=== PATIENT | male | born 1970 | race Caucasian/White ===

== ENCOUNTER 2020-10-18 15:49 | Inpatient (IN) ==
[2020-10-18] MEDS ORDERED: ONDANSETRON 4 MG/2 ML VIAL IV PRN (15:54)
[2020-10-18] MEDS ORDERED: ACETAMINOPHEN 325 MG TABLET PO PRN (15:54)
[2020-10-18] MEDS ORDERED: DIAZEPAM 5 MG TABLET PO ONE (16:46)
[2020-10-18] MEDS ORDERED: diphenhydrAMINE CAP 25 MG CAPSULE PO ONE (16:46)
[2020-10-18] MEDS ORDERED: MIDAZOLAM 2 MG/2 ML VIAL ONE ×2 (18:02→18:11)
[2020-10-18] MEDS ORDERED: fentaNYL 100 MCG/2 ML VIAL ONE (18:03)
[2020-10-18] MEDS ORDERED: NITROGLYCERIN DRIP 50 MG/250 ML BOTTLE IV ONE (18:05)
[2020-10-18] MEDS ORDERED: VERAPAMIL 5 MG/2 ML VIAL ONE (18:05)
[2020-10-18 18:07] LABS: Basophils % 0.1 % (0.0-0.8); Eosinophils % 0.1 % (0.00-10.9); Hematocrit 44.9 VOL% (42.0-52.0); Immature Granulocytes % 0.6 %; Immature Granulocytes Absolute 0.04 #; Lymphocytes # 1.2 10*3/uL (1.4-4.0); Lymphocytes % 15.9 % (21.2-54.2); Mean Corpuscular HGB Conc 33.4 GM/DL (32-36); Mean Corpuscular Volume 86.2 FL (87-102); Mean Platelet Volume 9.6 FL (9.6-12.0); Monocytes % 2.1 % (1.7-12.7); Neutrophils % 81.2 % (38.7-73.9); Platelet Count 236 T/CUMM (130-400); Red Blood Count 5.21 MC/CUMM (3.8-5.5); Red Cell Distribution Width 11.9 % (9.3-17.3); White Blood Count 7.2 T/CUMM (4-12)
[2020-10-18] MEDS ORDERED: HYDROmorphone 2 MG/1 ML VIAL ONE (18:11)
[2020-10-18] MEDS ORDERED: ENOXAPARIN 60 MG/0.6 ML SYRINGE ONE (18:14)
[2020-10-18 18:34] LABS: Albumin 3.8 G/DL (3.4-5.0); Bilirubin,Total 0.5 MG/DL (0.2-1.0); Calcium 9.6 MG/DL (8.5-10.1); Potassium 4.4 MMOL/L (3.5-5.1); Thyroid Stimulating Hormone 0.932 uIU/ml (0.358-3.74); Total Protein 8.1 G/DL (6.4-8.3)
[2020-10-18 18:38] LABS: CKMB % 5.4 %
[2020-10-18 18:43] LABS: Troponin I 4.25 NG/ML (0.00-0.045)
[2020-10-18] MEDS ORDERED: HEPARIN/NACL 0.9% 2 UNITS/ML 500 ML IV ONE (19:04)
[2020-10-18] MEDS ORDERED: TICAGRELOR 90 MG TABLET ONE (19:15)
[2020-10-18] MEDS ORDERED: NITROGLYCERIN SL 0.4 MG TABLET SL PRN (19:22)
[2020-10-18 20:59] LABS: CKMB % 5.8 %
[2020-10-18 21:00] LABS: Troponin I 7.19 NG/ML (0.00-0.045)
[2020-10-18] MEDS: ROSUVASTATIN 20 MG TABLET PO SCH (21:43)
[2020-10-18] MEDS: TICAGRELOR 90 MG TABLET PO SCH (21:43)
[2020-10-18] MEDS: SODIUM CHLORIDE 0.45% 1,000 ML IV SCH (21:43)
[2020-10-19 00:42] LABS: CKMB % 6.3 %
[2020-10-19 00:46] LABS: Troponin I 8.97 NG/ML (0.00-0.045)
[2020-10-19] MEDS: SODIUM CHLORIDE 0.45% 1,000 ML IV SCH (01:43)
[2020-10-19 02:47] LABS: Basophils % 0.3 % (0.0-0.8); Eosinophils % 0.1 % (0.00-10.9); Hematocrit 38.8 VOL% (42.0-52.0); Immature Granulocytes % 0.4 %; Immature Granulocytes Absolute 0.03 #; Lymphocytes # 1.2 10*3/uL (1.4-4.0); Lymphocytes % 15.3 % (21.2-54.2); Mean Corpuscular HGB Conc 33.5 GM/DL (32-36); Mean Corpuscular Volume 87.2 FL (87-102); Mean Platelet Volume 9.7 FL (9.6-12.0); Neutrophils % 73.9 % (38.7-73.9); Platelet Count 203 T/CUMM (130-400); Red Blood Count 4.45 MC/CUMM (3.8-5.5)
[2020-10-19 03:05] LABS: Calcium 8.5 MG/DL (8.5-10.1); Osmolality,Calculated 275.8 MOS/KG (273-304); Potassium 4.1 MMOL/L (3.5-5.1)
[2020-10-19 03:20] LABS: Risk Ratio 4.32; VLDL CHOLESTEROL 45.4 MG/DL
[2020-10-19] MEDS: ASPIRIN EC 81 MG TABLET PO SCH (09:22)
[2020-10-19] MEDS: metFORMIN 500 MG TABLET PO SCH ×2 (09:22→18:45)
[2020-10-19] MEDS: LOSARTAN 25 MG TABLET PO SCH (09:22)
[2020-10-19] MEDS: PANTOPRAZOLE 40 MG TABLET PO SCH (09:23)
[2020-10-19] MEDS: TICAGRELOR 90 MG TABLET PO SCH ×2 (09:23→20:06)
[2020-10-19] MEDS: ROSUVASTATIN 20 MG TABLET PO SCH (20:06)
[2020-10-20 05:51] LABS: Basophils # 0.1 10*3/uL (0.0-0.2); Basophils % 0.6 % (0.0-0.8); Eosinophils # 0.1 10*3/uL (0.0-0.87); Eosinophils % 1.5 % (0.00-10.9); Hematocrit 40.8 VOL% (42.0-52.0); Hemoglobin 13.9 GM/DL (14.0-18.0); Immature Granulocytes % 0.8 %; Immature Granulocytes Absolute 0.07 #; Lymphocytes # 2.8 10*3/uL (1.4-4.0); Lymphocytes % 31.5 % (21.2-54.2); Mean Corpuscular HGB Conc 34.1 GM/DL (32-36); Mean Corpuscular Volume 85.5 FL (87-102); Mean Platelet Volume 9.6 FL (9.6-12.0); Monocytes % 8.9 % (1.7-12.7); Neutrophils % 56.7 % (38.7-73.9); Platelet Count 213 T/CUMM (130-400); Red Blood Count 4.77 MC/CUMM (3.8-5.5); Red Cell Distribution Width 12.1 % (9.3-17.3); White Blood Count 8.8 T/CUMM (4-12)
[2020-10-20 05:59] LABS: Calcium 8.6 MG/DL (8.5-10.1); Potassium 3.7 MMOL/L (3.5-5.1)
[2020-10-20] MEDS ORDERED: POTASSIUM CHLORIDE 20 MEQ TABLET PO PRN (07:30)
[2020-10-20] MEDS: TICAGRELOR 90 MG TABLET PO SCH (09:25)
[2020-10-20] MEDS: metFORMIN 500 MG TABLET PO SCH (09:25)
[2020-10-20] MEDS: ASPIRIN EC 81 MG TABLET PO SCH (09:26)
[2020-10-20] MEDS: PANTOPRAZOLE 40 MG TABLET PO SCH (09:26)
[2020-10-20] MEDS: LOSARTAN 25 MG TABLET PO SCH (09:26)
== END 2020-10-20 10:43 | disposition home or self-care (01) | DRG 247 ==
LOC: N.TELES → N.ICU 19:38
PROVIDERS: ADMIT Internal Medicine Cardiovascular Disease; ATTEND Internal Medicine Cardiovascular Disease
PROC: CLCCHCL (ICD-10-PCS; 2020-10-18 17:45)